=== PATIENT | male | born 1955 ===

== ENCOUNTER 2022-12-18 12:35 | Outpatient (CLI) | payer BC, SELFPAY ==
--- NOTE | ~2022-12-18 | SLEEP.INT_ITS ---
Titration Report Patient Name: OSMANI GREEN Study Date: 12/18/2022 Referring Physician: Pernell Hernandez MD Indications for Polysomnography The patient is a 67 year-old male, 5' 5 or 165.1 cm tall and 200 lbs or 97 kg weight with a BMI of 3 3.3. The patient's neck circumference was 16 inches. The [place] Sleepiness Scale score was 12. A home sleep test on showed severe obstructive sleep apnea. He is here for a full night CPAP titration. Sleep History Osmani Green is a 67-year-old man without specific complaints about his sleeping. His doctor recomm ended the sleep study. He has excessive daytime sleepiness. He does not awaken from sleep feeling short of breath. He rarely awakens at night with heartburn, belching or coughing. He frequently snores loudly enough that others compla in about it. He does not have difficulty sleeping with a cold. Does not gasp for breath at night. He occasionally s weats excessively at night. He does not notice his heart pounding or beating irregularly at night. He occasionally falls asleep during the day, occasionally falls asleep involuntarily and rarely falls asleep while driving. He does not have loss of muscle tone with strong emotion. 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 He does not feel paralyzed on waking or falling asleep. He occasionally has vivid dreamlike scenes on waking or falling asleep. He does not feel afraid to go to sleep. He occasionally has nightmares, occasionally remembers his d dolores occasionally has racing thoughts. He does not feel sad or depressed. He denies having anxiety. He does not have muscular tension. He occasionally notice parts of his body jerking. He occasionally kicks at night. He does not have crawling or aching feelings in his legs. He occasionally has leg pain during the night. He does not have morning jaw p ain. He rarely grinds his teeth at night. He rarely is bothered by pain during the day. He rarely is awakened by pain at night. He frequently wakes up feeling stiff in the morning. On occasion, he wakes up with sore or achy muscles. Occasion ally he wakes up with pain in the neck and spine. He has fatigue. Normal bedtime is between 9:30 p.m. and 10:30 p.m. He falls asleep within 2 minutes. He wakes once at night at most, and this is to go to the bathroom. He returns to sleep quickly. He wakes the morning at 5:30 a.m.. On weekends, bedtime is 11:00 p.m., his wake time is 8:00 a.m. He estimates getting between 5 and 8 hours of slee p at night. He occasionally takes naps in the afternoon or evening. A short nap lasting 10 or 15 minutes may be ref reshing. Habits: He never smoked tobacco. Caffeine 2 servings a day. Medical History Hypertension Gastroesophageal reflux Hypothyroidism Obstructive sleep apnea Hyperlipidemia Medications Irbesartan 300 mg/hydrochlorothiazide 12.5 mg daily Levothyroxine 88 mcg daily Polysomnogram Data A full night polysomnogram using the [employer] multi-channel system recorded the standard phys iologic parameters including EEG, EOG, submentalis EMG, anterior tibialis EMG, EKG, body position, nasal and oral airflow using PAP device flow signal. Respiratory parameters of chest and abdominal movements were recorded with Respiratory Inductance Plethysmography belts. Oxygen saturation was recorded by pulse oximetry. Video monitoring was also performed. Sleep stages, periodic limb movements, and EEG arousals were scored in 30 second epochs according to the criteria of the AASM Scoring Manual. The Apnea-Hypopnea Index was calculated using C MS guidelines for definition of hypopnea while scoring respiratory events. Sleep Architecture The total recording time of the polysomnogram was 460.0 minutes. The total sleep time was 360.5 anel franny. Sleep latency was 6.0 mi
== END 2022-12-19 06:10 | disposition home or self-care (01) ==
LOC: ANHCSM 12:36
PROVIDERS: PCP Internal Medicine; Visit Provider Internal Medicine
DX: G47.33 Obstructive sleep apnea (adult) (pediatric) (principal); I10 Essential (primary) hypertension; K21.9 Gastro-esophageal reflux disease without esophagitis; E03.9 Hypothyroidism, unspecified; E78.5 Hyperlipidemia, unspecified
CPT/HCPCS: 95811